=== PATIENT | male | born 1995 | race Caucasian/White ===

== ENCOUNTER 2020-06-19 02:23 | Emergency (ER) | payer OTHER ==
[~2020-06-19] VITALS: Ht 177.8 cm; Wt 77.1 kg
[2020-06-19 02:23] VITALS: BP 152/79
--- NOTE | 2020-06-19 02:50 | NUR ---
covid swab was sent to the lab
--- NOTE | 2020-06-19 03:37 | NUR ---
pt was discharged w/ [employer] in custody in stable condition.
== END 2020-06-19 03:38 ==
LOC: ER 02:29
DX: R51.9 Headache, unspecified (principal); Z20.822 Contact with and (suspected) exposure to COVID-19
CPT/HCPCS: 87426; 99283; C9803